=== PATIENT | female | born 1950 | race Two or more races ===

== ENCOUNTER 2017-01-23 23:24 | Observation (INO) | payer SELFPAY ==
--- NOTE | 2017-01-24 00:15 | EDPHY ---
H & P Stated Complaint: SSO-visiting from [place], L hip/Thigh pain. HPI/ROS: HPI CHIEF COMPLAINT: Left hip pain, left leg pain HISTORY OF PRESENT ILLNESS: This patient very pleasant 66-year-old female, Lao-speaking only, her srrklkqc-ve-lta was used to interpret. She presents emergency room with back pain and left leg pain. Sharp stabbing worse with leg movement. It goes all the way down to her foot. Denies any trauma. Denies injury. This started last night. Progressively getting worse today. Unable to walk. Worse with left leg raise. Also worse with right cross leg raise. Denies any fever or midline back pain. Pain is located over the left posterior SI joint that radiates down gluteus left lateral leg and down into her foot. No saddle anesthesia. No bowel bladder incontinence. No leg weakness. Past Medical History: Hypertension, diabetes, severe bilateral arthritis of the knees Past Surgical History: No recent surgery Social History: Denies daily use drugs alcohol tobacco products. Visiting her son and qrllsevz-tm-uri. From [place]. Family History: Noncontributory ROS REVIEW OF SYSTEMS: A comprehensive 10 point review of systems is otherwise negative aside from elements mentioned in the history of present illness. Exam Constitutional triage nursing summary reviewed, vital signs reviewed, awake/ alert. Eyes normal conjunctivae and sclera, EOMI, PERRLA. HENT normal inspection, atraumatic, moist mucus membranes, no epistaxis, neck supple/ no meningismus, no raccoon eyes. Respiratory clear to auscultation bilaterally, normal breath sounds, no respiratory distress, no wheezing. Cardiovascular rate normal, regular rhythm, no murmur, no edema, distal pulses normal. Gastrointestinal soft, non-tender, no rebound, no guarding, normal bowel sounds, no distension, no pulsatile mass. Genitourinary no CVA tenderness. Musculoskeletal no midline vertebral tenderness, full range of motion, no calf swelling, no tenderness of extremities, no meningismus, good pulses, neurovascularly intact. Left lower extremity: Neurovascularly intact. Good distal pulse. Warm extremity. With any range of motion of the left leg she has sharp stabbing pain. There is no midline lumbar back pain on exam. Pain is located over the left posterior SI joint. There is no leg weakness. No saddle anesthesia. No bowel bladder incontinence but Skin pink, warm, & dry, no rash, skin atraumatic. Neurologic awake, alert and oriented x 3, AAOx3, moves all 4 extremities equally, motor intact, sensory intact, CN II-XII intact, normal cerebellar, normal vision, normal speech. Psychiatric normal mood/affect. Heme/Lymph/Immune no lymphadenopathy. Differential Diagnosis: Includes but is not limited to in a particular order sciatica, nerve root compression, compression fracture, annular tear, doubt acute cauda equina syndrome. Medical Decision Making: Plan for this patient x-ray left hip, x-ray lumbar spine, IV fentanyl for pain control. IV fluid bolus basic blood work. Re-evaluation: Patient on re-eval still in pain, Unable to walk. Having great difficulty with left leg. No signs of cauda equina. Given her age, co-morbids, and in-ability to walk at this time, recommend admission for pain control. PT/OT. She agrees. Updated her and family. SSO. Hospalist consulted. Source: Patient - Personal History Current Tetanus/Diphtheria Vaccine: Unsure Current Tetanus Diphtheria and Acellular Pertussis (TDAP): Unsure - Medical/Surgical History Hx Asthma: No Hx Chronic Respiratory Disease: No Hx Diabetes: Yes Hx Cardiac Disease: No Hx Renal Disease: No Hx Cirrhosis: No Hx Alcoholism: No Hx HIV/AIDS: No Hx Splenectomy or Spleen Trauma: No Other PMH: Visiting from [place], HTN, NIDDM, L knee surgery-unknown. - Social History Smoking Status: Never smoked Constitutional: Initial Vital Signs Temperature (C) 37.2 C 01/23/17 23:36 Heart Rate 108 H 01/23/17 23:36 Respiratory Rate 16 01/23/17 23:36 Blood Pressure 163/114 H 01/23/17 23:36 O2 Sat (%) 97 01/23/17 23:36 O2 Delivery Mode Room Air Allergies/Adverse Reactions: No Known Allergies Allergy (Unverified 01/23/17 23:39) Home Medications: Medication Instructions Recorded Enalapril Maleate [Vasotec 10 MG 10 mg PO DAILY 01/24/17 (*)] Metoclopramide [Reglan 10 mg tab 10 mg PO AC 01/24/17 (*)] Pravastatin Sodium [Pravachol] 10 mg PO HS 01/24/17 glyBURIDE [Glyburide] 5 mg PO BID 01/24/17 metFORMIN HCL [Glucophage 850 mg 850 mg PO BIDMEAL 01/24/17 (*)] CYCLOBENZAPRINE HCL [Flexeril] 5 mg PO TIDPRN PRN #20 tab 01/25/17 Medical Decision Making - Data Points Laboratory Results: Laboratory Results 01/24/17 00:20 01/24/17 00:20 Medications Given: Discontinued Medications Acetaminophen (Tylenol) 650 mg PO Q4HRS PRN PRN Reason: Pain, Mild/Fever, Can Take PO Stop: 07/23/17 02:04 Last Admin: 01/24/17 15:15 Dose: 650 mg Cyclobenzaprine HCl (Flexeril) 5 mg PO TID PRN PRN Reason: Spasms Stop: 07/23/17 02:14 Last Admin: 01/24/17 15:16 Dose: 5 mg Enalapril Maleate (Vasotec) 10 mg PO DAILY [facility] Stop: 07/24/17 08:59 Last Admin: 01/25/17 08:40 Dose: 10 mg Enoxaparin Sodium (Lovenox) 40 mg SC DAILY [facility] Stop: 07/23/17 08:59 Last Admin: 01/25/17 08:39 Dose: 40 mg Fentanyl (Sublimaze) 50 mcg IVP EDNOW ONE Stop: 01/24/17 00:22 Last Admin: 01/24/17 00:33 Dose: 50 mcg Fentanyl (Sublimaze) 50 mcg IVP EDNOW ONE Stop: 01/24/17 01:08 Last Admin: 01/24/17 01:11 Dose: 50 mcg Glyburide (Micronase) 5 mg PO BID [facility] Stop: 07/23/17 20:59 Last Admin: 01/25/17 10:14 Dose: Not Given Sodium Chloride (Ns) 1,000 mls @ 0 mls/hr IV ONCE ONE PRN Reason: Wide Open Stop: 01/24/17 00:22 Last Admin: 01/24/17 00:33 Dose: 1,000 mls Sodium Chloride (Ns) 1,000 mls @ 75 mls/hr IV CONT RADHAMES Stop: 07/23/17 02:14 Last Admin: 01/24/17 02:40 Dose: 1,000 mls Insulin Human Lispro (Humalog Lispro) 0 unit SC TIDMEAL RADHAMES PRN Reason: Protocol Stop: 07/23/17 07:59 Last Admin: 01/25/17 07:35 Dose: Not Given Insulin Human Lispro (Humalog Lispro) 5 unit SC ONCE ONE Stop: 01/24/17 02:17 Last Admin: 01/24/17 03:00 Dose: 5 units Lidocaine (Lidoderm 5%) 1 ea TD DAILY RADHAMES Stop: 07/23/17 12:44 Last Admin: 01/25/17 10:14 Dose: 1 ea Metoclopramide HCl (Reglan) 10 mg PO AC RADHAMES Stop: 07/23/17 11:29 Last Admin: 01/25/17 08:40 Dose: 10 mg Miscellaneous Information (Patch Removal) 1 ea TD DAILY21 RADHAMES Stop: 07/23/17 20:59 Last Admin: 01/24/17 22:33 Dose: 1 ea Pravastatin Sodium (Pravachol) 10 mg PO HS RADHAMES Stop: 07/23/17 20:59 Last Admin: 01/24/17 20:31 Dose: 10 mg Departure - Departure Disposition: [facility] Acute Clinical Impression: Left leg pain Sciatica Qualifiers: Laterality: left Qualified Code(s): M54.32 - Sciatica, left side
[2017-01-24] MEDS ORDERED: fentaNYL 100 MCG/2 ML INJ IVP ONE ×2 (00:21→01:07)
[2017-01-24] MEDS ORDERED: NS 1,000 ML IV ONE (00:21)
[2017-01-24 00:32] LABS: % IMMATURE GRANULYOCYTES 0.4 % (0.0-1.1); ABSOLUTE IMMATURE GRANULOCYTES 0.04 10^3/uL (0.00-0.10); ADD DIFF? NO; ADD MORPH? NO; ADD SCAN? NO; ATYPICAL LYMPHOCYTE FLAG 0 (0-99); FRAGMENT RBC FLAG 0 (0-99); HEMATOCRIT 35.5 % (38.0-47.0); HEMOGLOBIN 11.7 g/dL (12.6-16.3); LEFT SHIFT FLG 0 (0-99); LIPEMIA HEMOLYSIS FLAG 80 (0-99); MEAN CELL VOLUME 87.9 fL (81.5-99.8); PLATELET CLUMPS FLAG 0 (0-99); PLATELET COUNT 267 10^3/uL (150-400); RED BLOOD CELL COUNT 4.04 10^6/uL (4.18-5.33); RED CELL DISTRIBUTION WIDTH 13.7 % (11.5-15.2)
[2017-01-24 00:57] LABS: ANION GAP 16 mEq/L (8-16); CALCIUM 9.4 mg/dL (8.5-10.4); CARBON DIOXIDE 23 mEq/l (22-31); CHLORIDE 100 mEq/L (97-110); CREATININE 1.1 mg/dL (0.6-1.0); GLOMERULAR FILTRATION RATE 50; GLUCOSE 312 mg/dL (70-100); POTASSIUM 4.6 mEq/L (3.5-5.2); SODIUM 139 mEq/L (134-144)
[2017-01-24] MEDS ORDERED: ONDANSETRON 4 MG/2 ML VIAL IVP PRN (02:05)
[2017-01-24] MEDS ORDERED: HYDROCODONE/APAP 5/325 TAB PO PRN (02:05)
[2017-01-24] MEDS ORDERED: ACETAMINOPHEN 325 MG TAB PO PRN (02:05)
[2017-01-24] MEDS ORDERED: D50W 25 GM/50 ML SYR IVP PRN (02:12)
[2017-01-24] MEDS ORDERED: NS 1,000 ML IV SCH (02:15)
[2017-01-24] MEDS ORDERED: INSULIN LISPRO 100 UNIT/ML SC ONE (02:16)
[2017-01-24] MEDS: CYCLOBENZAPRINE 10 MG TAB PO PRN ×3 (02:38→15:16)
[2017-01-24 02:53] LABS: COLOR PALE YELLOW; LEUKOCYTE ESTERASE,URINE TRACE (NEGATIVE); NITRITE,URINE NEGATIVE (NEGATIVE)
[2017-01-24 04:30] LABS: % IMMATURE GRANULYOCYTES 0.4 % (0.0-1.1); ABSOLUTE IMMATURE GRANULOCYTES 0.04 10^3/uL (0.00-0.10); ADD DIFF? NO; ADD MORPH? NO; ADD SCAN? NO; ATYPICAL LYMPHOCYTE FLAG 0 (0-99); FRAGMENT RBC FLAG 0 (0-99); HEMATOCRIT 32.7 % (38.0-47.0); HEMOGLOBIN 10.6 g/dL (12.6-16.3); LEFT SHIFT FLG 0 (0-99); LIPEMIA HEMOLYSIS FLAG 80 (0-99); MEAN CELL HEMOGLOBIN 28.9 pg (27.9-34.1); MEAN CELL HEMOGLOBIN CONCENTR. 32.4 g/dL (32.4-36.7); MEAN CELL VOLUME 89.1 fL (81.5-99.8); MEAN PLATELET VOLUME 12.3 fL (8.7-11.7); PLATELET CLUMPS FLAG 10 (0-99); PLATELET COUNT 237 10^3/uL (150-400); RED BLOOD CELL COUNT 3.67 10^6/uL (4.18-5.33); RED CELL DISTRIBUTION WIDTH 13.7 % (11.5-15.2)
[2017-01-24] MEDS ORDERED: hydrALAZINE 20 MG/ML VIAL IVP PRN (04:41)
[2017-01-24 04:54] LABS: ANION GAP 7 mEq/L (8-16); CARBON DIOXIDE 25 mEq/l (22-31); CHLORIDE 106 mEq/L (97-110); CREATININE 1.1 mg/dL (0.6-1.0); GLOMERULAR FILTRATION RATE 50; GLUCOSE 133 mg/dL (70-100); POTASSIUM 4.4 mEq/L (3.5-5.2); SODIUM 138 mEq/L (134-144)
--- NOTE | 2017-01-24 06:24 | GHP ---
[f rep st] HISTORY AND PHYSICAL DATE OF ADMISSION: 01/24/2017 SOURCE: Patient is able to relay history. Her [id number] is at bedside and translates majority of the history. As patient is Armenian-speaking only, I am unable to have a basic conversation with the patient. CHIEF COMPLAINT: Left buttock pain. HISTORY OF PRESENT ILLNESS: This is a very pleasant 66-year-old female with past medical history sig nificant for diabetes, hypertension, hyperlipidemia, who presents to the emergency department today w ith complaints of acute onset of left buttock pain with radiation down her leg. The patient denies a ny recent injury, trauma, or falls. The patient without any previous history of arthritis in the hip or other joint pains. The patient recently traveled from [place] and visiting her son and daughter-i n-law. The hxlgdjst-qw-hkh states that she has been less active since she has arrived and has been d oing a lot more sitting versus her usual activities. Movement appears to worsen her symptoms and not mary has made her pain better, except for dose of fentanyl received in the emergency department. Maggie kline continues to describe severe pain with any kind of movement of her left lower extremity. The pa aspen denies any hip pain. She does report some mild knee pain, but no buckling or locking. REVIEW OF SYSTEMS: GENERAL: The patient denies any fevers, has felt a little bit more cold since arr ival to the ER, now improved. No sweats. SKIN: The patient denies any rashes, sores. ENT: No con gestion sore throat. CV: No chest pain, palpitations. RESPIRATORY: No shortness of breath or coug h. ABDOMEN: History of occasional nausea for which the patient takes metoclopramide before meals. No abdominal pain, diarrhea, melena, hematochezia. : No dysuria, hematuria. MUSCULOSKELETAL: Th e patient with complaints of left sacral and buttock pain, as well as some left knee pain. NEURO: T he patient denies any headache. No numbness or tingling. PSYCH: Plhcgkcb-rz-sxf reports patient wi th some anxiety and scared regarding hospital stay. ALLERGIES: No known drug allergies. HOME MEDICATIONS: Patient has brought her Dose-Vamsi from [place], enalapril 10 mg p.o. daily, metoclop ramide 10 mg p.o. three times daily a.c. Bactrim, the patient was advised to take Bactrim for concern s of UTI, as her urine was cloudy at the PCPs office, but she denies any symptoms and has only been t aking the Bactrim intermittently since that time. Out of a pack of 10 antibiotics, the patient has o nly taken 6. Metformin 850 mg p.o. twice daily, glyburide 5 mg p.o. twice daily, pravastatin 10 mg p .o. at bedtime. PAST MEDICAL HISTORY: Significant for diabetes, hypertension, hyperlipidemia, and chronic anemia. PAST SURGICAL HISTORY: Significant for , appendectomy. Left knee surgery. FAMILY HISTORY: Significant for diabetes type 2. SOCIAL HISTORY: Patient denies any current tobacco, drugs, or alcohol use. She is visiting from [facility] and staying with her son and icdznudo-so-ioa. PHYSICAL EXAM: VITALS: In the emergency department, temperature 37.2, blood pressure 163/114, heart rate 108, respiratory rate 16, O2 saturation 97% on room air. GENERAL: No acute distress, except t his patient moved her left lower extremity and patient grimaces and then becomes tearful. HEAD: Nor mocephalic, atraumatic. EYES: Extraocular muscles intact. Pupils equal, round, but almost pinpoint and with decreased activity to light bilaterally, but symmetric. No scleral icterus or conjunctival injection. ENT: Mucous membranes appear slightly dry, but no oropharyngeal erythema or exudates. NECK: Supple. Trachea midline. CV: Regular rate and rhythm. No murmurs, rubs, or gallops apprecia aravind. RESPIRATORY: Lungs clear to auscultation bilaterally. No wheezes, rales, or rhonchi. ABDOMEN : Positive bowel sounds. Soft, nontender to palpation. No rebound, guarding, or masses appreciated . Obese abdomen positive. : No Benedict in place. No suprapubic tenderness to palpation. EXTREMIT IES: No cyanosis, clubbing, or edema appreciated. The patient with 1+ pedal pulses. NEURO: Crania l nerves grossly nonfocal. Patient's strength decreased overall, but particularly in the lower extre mities were the patient has significant decrease in range of motion secondary to severity of pain in her left buttock at the site of muscle insertion along the sacrum. The patient without any tendernes s over the IT band or and the left trochanter. Her sensation is intact. The patient is able to pinp oint a specific trigger point along the sacrum and buttock. PSYCH: Patient does appear a little bit anxious, but she is pleasant and cooperative. LAB STUDIES: WBCs 10.9, H and H 11.7, 35.5, MCV 87.9, platelet count is 267, no bands. Sodium 139, potassium 4.6, chloride 100, CO2 23, BUN is 25, creatinine 1.1. GFR is 50, glucose 312, glucose 225, calcium 9.4. UA: Specific gravity 1.015, pH is 6.0, trace leuk esterase, 3+ glucose, WBCs 1-3. IMAGING: Hip and lumbar spine x-ray both reviewed myself and radiology report is still pending. Pat ient with some joint narrowing appreciated of the left hip. Lumbar spine without any acute findings. ASSESSMENT AND PLAN: This is a pleasant 66-year-old female who presents with complaints of severe de bilitating left buttock pain. 1. Left buttock pain appears to be consistent with piriformis syndrome, trigger point. There is no evidence for lumbar etiology of her pain. The patient without any other focal findings and reproduci ble pain to palpation. The patient is concerned regarding the pain. She is hesitant to ambulate. W e will plan to manage her pain. Ideally, would like to use an anti-inflammatory, but the patient wit h some mild bump in her creatinine and does not know of any previous history of chronic kidney diseas e, so will plan to IV fluid hydrate. Repeated a BMP in the morning and if creatinine has improved, w ill consider use of NSAIDs for pain. In addition, the patient does have Tylenol. Will try a K-pad, which has appears to have helped previously and consider a muscle relaxant. The patient did receive some fentanyl in the ED with improvement in her pain and range of motion, but is still persistent. S he does appear to be still somnolent, so will try to minimize the use of narcotics. 2. Acute kidney injury. Unknown baseline. This patient is visiting from [place], but she denies any reports from her PCP previously of this. It is unclear at this point, chronicity, but as patient do es have a history of diabetes and hypertension. We will plan to IV fluid hydrate and repeat BMP in t he morning. Avoid nephrotoxic medications. 3. Diabetes type 2, uncontrolled. The patient appears to have missed her evening dose of metformin and glyburide. Blood sugars early this morning are over 300. We will plan to monitor Accu-Cheks for now and then treat with 5 units this evening and then resume patient's home medications and put her on an ADA diet. 4. Anemia. The patient does report a previous history of anemia. Does not appear to be having any active bleeding. I advised the patient and family that she should consider follow up with PCP for fu rther evaluation including consideration for possible colonoscopy as patient has never had one. 5. Benign essential hypertension. Blood pressures in the emergency department have been slightly el evated. The patient does appear to be quite anxious and will make hydralazine available p.r.n. 6. Hyperlipidemia. Continue statin. 7. Fluids, electrolyte and nutrition: IV fluids overnight for gentle hydration. Electrolyte replac ement p.r.n. patient will be placed on ADA diet. 8. Prophylaxis, SCDs, Lovenox. 9. Core: Full. 10. Disposition: Patient admitted to observation on the medical floor. PT, OT have been consulted. Will try to mobilize the patient and obtain adequate pain control for discharge home later in the d ay or tomorrow. /[id number]/MODL
[2017-01-24] MEDS: INSULIN LISPRO 100 UNIT/ML SC SCH ×3 (09:57→17:32)
[2017-01-24] MEDS: ENOXAPARIN 40 MG/0.4 ML SYR SC SCH (10:09)
--- NOTE | 2017-01-24 11:30 | HOSPPROG ---
Hospitalist Progress Note Assessment/Plan: #Left buttock/back pain: improved today. No flag signs. Treat with Flexeril, heat, APAP #Suspected CKD: Cr stable 1.1. h/o HTN and DM #DM: SSI. Resume glyburide. Add metformin back if Cr stable #HTN: Enalapril #HLD: statin #Diet: DM #Disp: warrants obs admission for intractable pain, unsteady gait, placing at risk for fall and subsequent harm Subjective: pain improved now Objective: Vital Signs Temp Pulse Resp BP Pulse Ox 37.2 C 108 H 14 115/76 95 01/24/17 07:40 01/24/17 09:45 01/24/17 07:40 01/24/17 07:40 01/24/17 09:45 Laboratory Results 01/24/17 04:11 01/24/17 04:11 01/23/17 01/24/17 01/25/17 05:59 05:59 05:59 Intake Total 1300 Output Total 900 Balance 400 - Physical Exam Constitutional: no apparent distress Eyes: PERRL Ears, Nose, Mouth, Throat: moist mucous membranes Cardiovascular: regular rate and rhythym Respiratory: no respiratory distress Gastrointestinal: normoactive bowel sounds, soft, non-tender abdomen Genitourinary: no bladder fullness Skin: warm Musculoskeletal: other (point TTP left buttock and spasm left paraspinal. No redness, warmth. No bony TTP over spine) Neurologic: CN II-XII Intact, other (normal sentation to touch througout) Psychiatric: interacting appropriately ICD10 Worksheet Patient Problems: Problems Problem Status Onset Buttock pain Acute - ICD10 Problem Qualifiers (1) Buttock pain
[2017-01-24] MEDS: METOCLOPRAMIDE 10 MG TAB PO SCH ×2 (12:13→17:29)
[2017-01-24] MEDS: LIDOCAINE 5% 1 EA PATCH TD SCH (13:40)
--- NOTE | 2017-01-24 14:36 | ASMTCMCOM ---
CM Note CM Note Notes: Pt is from [place], visiting son and dtr [facility]. Cleared by PT/OT to dc home. PT rec out pt therapy. No CM needs anticipated. CM w/f. Pt may have to be screened on Wednesday for emergency M'Caid. Date Signed: 01/24/2017 02:35 PM Electronically Signed By:Jacquelin Ruby RN
[2017-01-24] MEDS: glyBURIDE 5 MG TAB PO SCH (20:34)
[2017-01-24] MEDS ORDERED: PATCH REMOVAL 1 EA PATCH TD SCH (21:00)
[2017-01-24] MEDS ORDERED: PRAVASTATIN SODIUM 10 MG TAB PO SCH (21:00)
[2017-01-24 23:34] VITALS: BP 133/80
[2017-01-25 05:56] LABS: ANION GAP 9 mEq/L (8-16); CARBON DIOXIDE 24 mEq/l (22-31); CHLORIDE 105 mEq/L (97-110); CREATININE 0.8 mg/dL (0.6-1.0); GLOMERULAR FILTRATION RATE > 60; GLUCOSE 127 mg/dL (70-100); SODIUM 138 mEq/L (134-144)
[2017-01-25] MEDS: INSULIN LISPRO 100 UNIT/ML SC SCH (07:35)
--- NOTE | 2017-01-25 08:08 | HOSPPROG ---
Hospitalist Progress Note Assessment/Plan: Exam and interview with medical assembler. #Left buttock/back pain: inone today. No flag signs. Treat with Flexeril, heat, APAP at home #DANIKA: Cr improved to 0.8 with IVFs. #Hypoglycemia: 2/2 to SSI last mirella. Improved this morning #DM: SSI. Resume glyburide and metformin #HTN: Enalapril #HLD: statin #Diet: DM #Disp: DC today Subjective: no pain this morning in buttock or back. Ambulating well Objective: Vital Signs Temp Pulse Resp BP Pulse Ox 36.7 C 74 18 133/80 H 95 01/24/17 23:32 01/24/17 23:32 01/24/17 23:32 01/24/17 23:32 01/24/17 23:32 Laboratory Results 01/24/17 04:11 01/25/17 05:31 01/24/17 01/25/17 01/26/17 05:59 05:59 05:59 Intake Total 1300 1000 Output Total 900 Balance 400 1000 - Physical Exam Constitutional: no apparent distress Eyes: PERRL Ears, Nose, Mouth, Throat: moist mucous membranes Cardiovascular: regular rate and rhythym Respiratory: no respiratory distress Gastrointestinal: normoactive bowel sounds Genitourinary: no bladder fullness Skin: warm Musculoskeletal: full muscle strength, other (no point TTP in buttock or lumbar paraspinal region) Neurologic: AAOx3, CN II-XII Intact Psychiatric: interacting appropriately ICD10 Worksheet Patient Problems: Problems Problem Status Onset Buttock pain Acute - ICD10 Problem Qualifiers (1) Buttock pain
[2017-01-25] MEDS: ENOXAPARIN 40 MG/0.4 ML SYR SC SCH (08:39)
[2017-01-25] MEDS: METOCLOPRAMIDE 10 MG TAB PO SCH (08:40)
[2017-01-25 08:48] VITALS: PULSE 82; RESP 16; TEMP 97.9; O2SAT 98
[2017-01-25] MEDS ORDERED: ENALAPRIL MALEATE 10 MG TAB PO SCH (09:00)
[2017-01-25] MEDS: LIDOCAINE 5% 1 EA PATCH TD SCH (10:14)
[2017-01-25] MEDS: glyBURIDE 5 MG TAB PO SCH (10:14)
--- NOTE | 2017-01-25 11:08 | GDS ---
[f rep st] DISCHARGE SUMMARY DISCHARGE DIAGNOSES: 1. Acute buttock/lumbar back pain. 2. Acute kidney injury. 3. Hypoglycemia. 4. Diabetes. 5. Hypertension. 6. Hyperlipidemia. HISTORY OF PRESENT ILLNESS: A 66-year-old Mohawk-speaking female with history of hypertension, hyperlipidemia, diabetes, presented to the ER with acute left- sided buttock pain with radiation down the leg. She denies any recent injury, trauma, or falls. No recent prolonged travel. Daughter states that she has been less active since she has arrived and has been doing a lot more sitting versus her usual activities. Movement makes the pain worse. The only thing that helped was fentanyl in the emergency room. She denies any weakness, numbness. No bowel or bladder incontinence. No fevers, chills, or sweats. Does not have any hardware in her body. HOSPITAL COURSE BY PROBLEM: #1: Left buttock/lumbar muscular pain. Appeared to be a muscle spasm on exam. She had no flag signs. Symptoms much improved with Flexeril, heat and Tylenol. She was moving today without issue. #2: DANIKA. Creatinine mildly elevated at 1.1 on admission, and it improved to 0.8 with IV fluids. #3: Hypoglycemia. This was last night with sliding scale insulin. Improved this morning. #4: Diabetes. Continue home medications. #5: Hypertension. Enalapril. #6: Hyperlipidemia. Statin. DISPOSITION: Patient is stable for discharge. NEW MEDICATIONS: Flexeril 5 mg p.o. p.r.n. FOLLOWUP: Her PCP. /[id number]/MODL MTDD
--- NOTE | 2017-01-25 14:16 | ASMTCMCOM ---
CM Note CM Note Notes: Pt medically stable for d/c, Med Data alerted to see if pt qualifies for emergency Medicaid. No CM d/c needs identified. Date Signed: 01/25/2017 02:16 PM Electronically Signed By:NISA Rascon
--- NOTE | 2017-01-25 15:15 | ASDISCHSUM ---
Discharge Information Plan Status:Home with No Needs Medically Cleared to Leave: Discharge Date:01/25/2017 10:45 AM CM D/C Disposition:Home, Routine, Self-Care ADT D/C Disposition:Home, Routine, Self-Care Projected Discharge Date:01/25/2017 10:45 AM Transportation at D/C: Discharge Delay Reason: Follow-Up Date:01/25/2017 10:45 AM Discharge Slot: Final Diagnosis: Placement Information Patient Contact Information Contact Name:YUMIKO Relationship:Other Address:[address] [place] [address] Work Phone: City:[place] Alternate Phone: [facility]/Zip Code:[place] [address] Email: Financial Information Financial Class:Self-Pay Primary Plan Desc:SELF PAY Primary Plan Number: Secondary Plan Desc: Secondary Plan Number: Assessment Information [facility] CM Progress Note CM Note CM Note Notes: Pt is from [place], visiting son and dtr [place]. Cleared by PT/OT to dc home. PT rec out pt therapy. No CM needs anticipated. CM w/f. Pt may have to be screened on Wednesday for emergency M'Caid. Date Signed: 01/24/2017 02:35 PM Electronically Signed By:Jacquelin Ruby RN [facility] CM Progress Note CM Note CM Note Notes: Pt medically stable for d/c, Med Data alerted to see if pt qualifies for emergency Medicaid. No CM d/c needs identified. Date Signed: 01/25/2017 02:16 PM Electronically Signed By:NISA Rascon Intervention Information
== END 2017-01-25 10:45 | disposition home or self-care (01) ==
LOC: INTOOBSV 01-24 01:09 → F3N 01-24 02:18
PROVIDERS: ADMIT Family Medicine; ATTEND Family Medicine
DX: M54.32 Sciatica, left side (principal); N17.9 Acute kidney failure, unspecified; E11.649 Type 2 diabetes mellitus with hypoglycemia without coma; I10 Essential (primary) hypertension; E78.5 Hyperlipidemia, unspecified
CPT/HCPCS: 97116-GP; 97161-GP; 97166-GO; G0378; J1650; J1815; J3010